=== PATIENT | male | born 1985 ===

== ENCOUNTER 2017-07-23 15:53 | Emergency (ER) | payer BC | END 2017-07-23 16:04 | disposition left against medical advice (07) | LOC: UCEAST 15:53 | DX: T14.8 Other injury of unspecified body region (principal); X58.XXXD Exposure to other specified factors, subsequent encounter; Y92.9 Unspecified place or not applicable; Y99.9 Unspecified external cause status; Z53.21 Procedure and treatment not carried out due to patient leaving prior to being seen by health care provider ==